=== PATIENT | male | born 1965 | race Two or more races ===

== ENCOUNTER 2022-07-06 10:34 | Emergency (ER) | payer SELFPAY ==
[~2022-07-06] VITALS: Ht 167.6 cm; Wt 89.2 kg
[2022-07-06 10:45] VITALS: BP 135/63
[2022-07-06] MEDS ORDERED: ACETAMINOPHEN 325 MG TAB PO ONE (10:45)
[2022-07-06] MEDS ORDERED: cefTRIAXone 1GM/50ML D5W 50 ML IV ONE (11:45)
[2022-07-06] MEDS ORDERED: CLINDAMYCIN 900MG IV 50 ML IV ONE (11:45)
[2022-07-06] MEDS ORDERED: SODIUM CHLORIDE 0.9% 1,000 ML IV ONE (11:45)
[2022-07-06] MEDS ORDERED: CLIN300C8 PO (11:48)
[2022-07-06] MEDS ORDERED: ACET-1158 PO (11:48)
[2022-07-06] MEDS ORDERED: CEPH-510 PO (11:48)
[2022-07-06] MEDS ORDERED: TETANUS-DIPTH-ACEL PERTUSSIS 0.5ML SYR Tdap IM ONE (12:15)
[2022-07-06] MEDS ORDERED: ONDANSETRON ODT 4 MG TAB PO ONE (13:15)
== END 2022-07-06 15:45 | disposition home or self-care (01) ==
LOC: ER 10:34
DX: L03.312 Cellulitis of back [any part except buttock and flank] (principal); E11.9 Type 2 diabetes mellitus without complications
CPT/HCPCS: 90471; 90715; 96365; 96368; 99284; J0696; J3490; J7030; Q0162

== ENCOUNTER 2022-07-15 12:16 | Emergency (ER) | payer SELFPAY ==
[~2022-07-15] VITALS: Ht 172.7 cm; Wt 88.0 kg
[~2022-07-15 12:16] MED LIST: ACET-1158 PO; CEPH-510 PO; CLIN300C8 PO
[2022-07-15] MEDS ORDERED: ACET-1158 PO (17:01)
[2022-07-15] MEDS ORDERED: SULF800T7 PO (17:01)
[2022-07-15] MEDS ORDERED: cefTRIAXone SOD 1,000 MG VL IM ONE (18:30)
[2022-07-15] MEDS ORDERED: LIDOCAINE 1% HCL (LOCAL ANESTH.) INJ 20ML MDV ONE (18:42)
[2022-07-15 18:48] VITALS: BP 105/69
== END 2022-07-15 18:55 | disposition home or self-care (01) ==
LOC: ER 12:16
DX: L02.212 Cutaneous abscess of back [any part, except buttock and flank] (principal); E11.9 Type 2 diabetes mellitus without complications
CPT/HCPCS: 10060; 96372; 99283; J0696; J2001

== ENCOUNTER 2022-07-22 10:29 | Emergency (ER) | payer SELFPAY ==
[~2022-07-22] VITALS: Ht 167.6 cm; Wt 90.0 kg
[~2022-07-22 10:29] MED LIST changes: +SULF800T7 PO
[2022-07-22] MEDS ORDERED: CLIN300C8 PO (13:30)
[2022-07-22 13:57] VITALS: BP 121/59
== END 2022-07-22 14:12 | disposition home or self-care (01) ==
LOC: ER 10:29
DX: L02.212 Cutaneous abscess of back [any part, except buttock and flank] (principal); E11.9 Type 2 diabetes mellitus without complications